=== PATIENT | female | born 1960 | race Caucasian/White ===

== ENCOUNTER 2023-10-10 10:46 | Outpatient (CLI) | payer BC | END 2023-10-10 10:47 | disposition critical access hospital (66) | LOC: EMS 10:46 | DX: M25.511 Pain in right shoulder (principal); W10.8XXA Fall (on) (from) other stairs and steps, initial encounter; Y92.008 Other place in unspecified non-institutional (private) residence as the place of occurrence of the external cause | CPT/HCPCS: A0425; A0427 ==

== ENCOUNTER 2023-10-10 11:20 | Emergency (ER) | payer BC ==
--- NOTE | 2023-10-10 11:50 | XRAY Report ---
PROCEDURE: Shoulder 2+V RT INDICATIONS: fall/R shoulder inj TECHNIQUE: 3 views of the shoulder were acquired. COMPARISON: None. FINDINGS: Bones: Anterior inferior dislocation of the shoulder. Possible Hill-Sachs deformity.. No suspicious bony lesions. Visualized ribs appear intact. Soft tissues: No suspicious soft tissue calcifications. The visualized lungs are within normal limi ts. IMPRESSION: Anterior inferior dislocation of the shoulder. Possible Hill-Sachs fracture deformity. Reviewed by: Daniel Bob MD on 10/10/2023 10:49 AM LAW Approved by: Daniel Bob MD on 10/10/2023 10:49 AM LAW Station ID: [id number]
[2023-10-10] MEDS: PROPOFOL 200 MG/20 ML VIAL IVP STA (13:15)
--- NOTE | 2023-10-10 13:37 | ED Physician Documentation ---
PD HPI UPPER EXT INJURY - Stated complaint Stated Complaint: R SHOULDER INJ - Chief complaint Chief Complaint: Trauma Ext - History obtained from History obtained from: Patient, Family - Additonal information Additional information: The patient comes to the emergency department chief complaint of right shoulder pain. She was going up the stairs when she ripped and fell, striking her right shoulder against one of the stairs. She then slid down a few stairs and was not really injured in any other way. However, her shoulder hurts very badly and she is not able to move it. No prior injuries. No other complaints at this time. PD PAST MEDICAL HISTORY - Past Medical History Past Medical History: No Musculoskeletal: Chronic back pain - Past Surgical History Past Surgical History: Yes /[employer]: Tubal ligation - Present Medications Home Medications: Ambulatory Orders Medication Instructions Recorded Confirmed HYDROcod/ACETAM 5/325 [Billings 5/325] 1 - 2 tablet PO Q6H PRN #14 tablet 10/10/23 Ondansetron Odt [Zofran] 4 mg TL Q6H PRN #10 tablet 10/10/23 - Allergies Allergies/Adverse Reactions: Allergies Allergy/AdvReac Type Severity Reaction Status Date / Time fentanyl AdvReac Unknown Verified 10/10/23 14:08 - Social History Does the pt smoke?: No Smoking Status: Never smoker Does the pt drink ETOH?: Yes ETOH Use: Wine Does the pt have substance abuse?: No - POLST Patient has POLST: No PD ED PE NORMAL - Vitals Vital signs reviewed: Yes - General General: Alert and oriented X 3, No acute distress, Well developed/nourished - HEENT HEENT: Atraumatic, PERRL, EOMI, Moist mucous membranes - Neck Neck: Supple, no meningeal sign - Cardiac Cardiac: RRR, No murmur - Respiratory Respiratory: No respiratory distress, Clear bilaterally - Abdomen Abdomen: Soft, Non tender, Non distended - Back Back: No spinal TTP - Derm Derm: Normal color, Warm and dry, No rash - Extremities Extremities: Other (Hollowness noted of the glenohumeral joint on the right. Limited range of motion throughout right upper extremity and severely through shoulder. Distal pulses intact.) - Neuro Neuro: Alert and oriented X 3, No motor deficit, No sensory deficit - Psych Psych: Normal mood, Normal affect Results - Vitals Vitals: Oxygen O2 Source Room air - Rads (name of study) Right shoulder x-ray series Relevant Findings:: Final report received, See rad report (Anterior dislocation with possible Hill-Sachs deformity) Right Shoulder x-ray series Relevant Findings:: Final report received, See rad report (Interval reduction of dislocation; Hill-Sachs deformity not seen on this exam.) Procedures - Reduction Body part reduced: Right, Shoulder Fracture or dislocation: Dislocation Shoulder reduction technique: Traction - counter tract Reduction aftercare: NV intact, Xray confirms reduction, Alignment improved, Splint applied - Procedural sedation Sedation prep: Informed consent, Time out completed, Last meal, PE performed, ASA 1 - healthy Sedation Medications: propofol Mallampati classification: I Patient status during sedation: Unresponsive Sedation recovery: Recovered uneventfully, Back to baseline Time in sedation (Minutes): 10 PD Medical Decision Making - ED course Complexity details: reviewed results, re-evaluated patient, considered differential, d/w patient, d/w family ED course: The patient's right shoulder was reduced as above without incident. Her repeat x-ray did not show evidence of any fracture. We have discussed the need for orthopedic follow-up. The patient has been placed in a sling and is advised to wear it for at least the next week or until cleared by orthopedics. We have discussed the usual indications for return and follow-up. I have prescribed analgesia for the patient. Departure - Departure Disposition: 01 Home, Self Care Clinical Impression: Anterior shoulder dislocation Qualifiers: Encounter type: initial encounter Laterality: right Qualified Code(s): S43.014A - Anterior dislocation of right humerus, initial encounter Condition: Stable Instructions: ED Dislocation Shoulder Redu Follow-Up: Israel Chang MD [Provider Admit Priv/Credential] - Ok Ziegler MD [Provider Admit Priv/Credential] - Prescriptions: HYDROcod/ACETAM 5/325 [Billings 5/325] 1 - 2 tablet PO Q6H PRN #14 tablet PRN Reason: Pain Ondansetron Odt [Zofran] 4 mg TL Q6H PRN #10 tablet PRN Reason: Nausea / Vomiting Comments: You dislocated your right shoulder today and has been put back in place in the emergency department. It slipped back into place very easily under sedation, which was very good. Your repeat x-ray demonstrates good alignment of your shoulder joint. Additionally, the potential chip fracture that they saw on the first x-ray has not redemonstrated itself on your repeat x-ray. You have been placed in a sling and should wear this for at least the next week. You may take your arm out of the sling to bathe but please do not twist or stretch her shoulder too much. Please also do not picker/puller any heavy objects or perform otherwise strenuous movements with your right arm. Please follow-up with orthopedics in the next week or 2 for reevaluation. You may take the pain medication we have prescribed for you, as well as ibuprofen. You may slowly ease back Into regular activities as you feel your shoulder is able to handle it. Orthopedist gave you a better idea of what to expect as far as likelihood of repeat dislocations. Please call to make the next available appointment for follow-up. Prescriptions for your pain medication and nausea medicine have been electronically transmitted to the [facility] in [place]. Please pick these up this afternoon. They are open until 5 PM for the holiday hours and will be open normal hours tomorrow. Forms: PCP List Discharge Date/Time: 10/10/23 14:36
--- NOTE | 2023-10-10 13:43 | XRAY Report ---
PROCEDURE: Shoulder 1V RT INDICATIONS: dislocation reduction TECHNIQUE: 1 views of the shoulder were acquired. COMPARISON: None. FINDINGS: Bones: A single view demonstrates reduction of the previous anterior shoulder dislocation. Suspect H ill-Sachs deformity, although this is not conclusively evident on this image based on the rotation of the humeral head. No suspicious bony lesions. Visualized ribs appear intact. Soft tissues: No suspicious soft tissue calcifications. The visualized lungs are within normal limi ts. IMPRESSION: Satisfactory reduction of anterior shoulder dislocation. Suspect Hill-Sachs deformity, not convincing ly proved on this image. Reviewed by: Tom Dorantes MD on 10/10/2023 1:42 PM PDT Approved by: Tom Dorantes MD on 10/10/2023 1:42 PM PDT Station ID: [id number]
[2023-10-10] MEDS: HYDROmorphone 1 MG/ML CARPUJECT IVP STA (13:54)
[2023-10-10] MEDS: ONDANSETRON 4 MG/2 ML VIAL IVP STA (13:54)
[2023-10-10] MEDS: HYDROmorphone 0.5 MG/0.5 ML SYRINGE IVP STA (13:54)
[2023-10-10 14:38] VITALS: BP 135/77; O2SAT 97
== END 2023-10-10 14:36 | disposition home or self-care (01) ==
LOC: EDUNIT# → ED 11:20
DX: S43.014A Anterior dislocation of right humerus, initial encounter (principal); W10.9XXA Fall (on) (from) unspecified stairs and steps, initial encounter
CPT/HCPCS: 23650; 73020; 73030; 96374; 99152; 99283; 99285; J1170